=== PATIENT | female | born 1990 | race Caucasian/White ===

== ENCOUNTER → 2018-01-15 | Outpatient (REF) | payer OTHER | LOC: M SFHCWAGY 10:05 | DX: Z12.4 Encounter for screening for malignant neoplasm of cervix (principal) ==

== ENCOUNTER → 2018-01-25 | Outpatient (CLI) | payer OTHER | LOC: M LRY 12:21 | DX: R05 Cough (principal) | CPT/HCPCS: 71046 ==

== ENCOUNTER → 2018-01-25 | Outpatient (CLI) | payer OTHER | LOC: M LRY 12:26 | DX: R05 Cough (principal) ==

== ENCOUNTER → 2019-03-26 | Outpatient (REF) | payer BC ==
[2019-03-26 22:47] LABS: CHLAMYDIA DNA AMPLIFICATION NEGATIVE (NEGATIVE); GC DNA AMPLIFICATION NEGATIVE (NEGATIVE)
== END ==
LOC: M SFHCWAGY 16:46
PROVIDERS: ATTEND Nurse Practitioner Women's Health
DX: Z11.3 Encounter for screening for infections with a predominantly sexual mode of transmission (principal)

== ENCOUNTER → 2021-12-16 | Outpatient (CLI) | payer BC | LOC: M SOG 07:53 | PROVIDERS: ATTEND Orthopaedic Surgery Hand Surgery | DX: M25.532 Pain in left wrist (principal) ==